=== PATIENT | female | born 1975 ===

== ENCOUNTER 2022-06-28 11:29 | Emergency (ER) | payer OTHER ==
[~2022-06-28] VITALS: Ht 157.5 cm; Wt 70.8 kg
[2022-06-28] MEDS ORDERED: CLONAZEPAM0.5 MG PO (11:40)
[2022-06-28] MEDS ORDERED: MAYZENT2 MG PO (11:41)
[2022-06-28] MEDS ORDERED: DUI500 PO (22:24)
== END 2022-06-28 22:39 | disposition home or self-care (01) ==
LOC: ER 11:29
DX: K52.9 Noninfective gastroenteritis and colitis, unspecified (principal); E86.0 Dehydration; D25.9 Leiomyoma of uterus, unspecified; K76.89 Other specified diseases of liver